=== PATIENT | female | born 1975 | race Caucasian/White ===

== ENCOUNTER 2018-03-16 12:42 | Emergency (ER) | payer OTHER ==
[~2018-03-16] VITALS: Ht 160 cm; Wt 74.1 kg
[2018-03-16 12:44] VITALS: TEMP 36.8; Ht 160 cm; Wt 74.1 kg
[2018-03-16] MEDS ORDERED: PRLSR20 PO (12:51)
--- NOTE | 2018-03-16 14:31 | DIAGNOSTIC IMAGING REPORT ---
SOFT TISSUE NECK TECHNIQUE: AP and lateral soft tissue neck FINDINGS: Normal prevertebral soft tissues. No distention of the hypopharynx. The epiglottis is normal. No evidence for radiopaque foreign body. Moderate degenerative disc change from C4 through C7 of the cervical spine. IMPRESSION: No evidence for radiopaque foreign body. Unremarkable airway appearance. Moderate degenerative disc change of the low cervical spine. The above report was generated using voice recognition software. It may contain grammatical, syntax or spelling errors. Electronically signed by: David Baum M.D. 03/16/2018 2:29 PM Dictated Date/Time: 03/16/2018 2:28 PM
[2018-03-16] MEDS ORDERED: HYDR-5688 PO (14:50)
[2018-03-16] MEDS ORDERED: LORA-741 PO (14:50)
--- NOTE | 2018-03-16 14:52 | EMERGENCY ROOM VISIT NOTE ---
History First contact with patient: 13:03 Chief Complaint: THROAT PAIN/INJURY Stated Complaint: PROBLEMS WITH THROAT History of Present Illness The patient is a 42 year old female who presents to the Emergency Room with complaints of right-sided throat pain for 2 months. The patient states that she had an endoscopy performed 2 months ago for reflux. She states they put her on Prilosec twice daily after the endoscopy. 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 The patient states the pain has been persistent since that time. She has a follow-up in 6 months for repeat endoscopy. The patient saw her family doctor which placed her on a swish and swallow which did not resolve her symptoms. She set up appointment with ENT which she has tomorrow. The patient states that it feels like "there is a fishhook in my throat." She states she cannot sleep at night due to the pain. She states the chronic pain and irritation is giving her anxiety. The patient denies any nausea or vomiting. The patient does admit to belching but that is not new to her. Review of Systems 10 system review was performed and was negative unless stated otherwise history of present illness. Past Medical/Surgical History GERD, Veloz's esophagitis Social History Smoking Status: Current Every Day Smoker Occupation Status: employed Current/Historical Medications Scheduled Omeprazole (Prilosec), 20 MG PO DAILY Physical Exam Vital Signs Date Time Temp Pulse Resp B/P (MAP) Pulse Ox O2 Delivery O2 Flow Rate FiO2 03/16/18 13:03 97 Room Air 03/16/18 13:01 108 18 145/91 98 Room Air 03/16/18 12:47 99 Room Air 03/16/18 12:44 36.8 141 20 157/81 99 Room Air Physical Exam GENERAL: 42-year-old white female appears in no acute distress. MENTAL Status: Alert and oriented 3. The patient does appear somewhat anxious. Her thought process is good. EYES: PERRLA. EOMs intact. Funduscopic exam unremarkable. EARS: Canals clear. TMs without fluid level noted. PHARYNX: No erythema or edema noted. Airway is adequate. NECK: Supple, no lymphadenopathy noted. No carotid bruits noted. The patient is tender to palpation over the right anterior aspect of the neck. No palpable masses. LUNGS: Clear auscultation without wheezes rales or rhonchi. CARDIAC: Regular rate and rhythm without murmur with occasional ectopy. Pulses is full and equal throughout. Medical Decision & Procedures ER Provider Diagnostic Interpretation: SOFT TISSUE NECK TECHNIQUE: AP and lateral soft tissue neck FINDINGS: Normal prevertebral soft tissues. No distention of the hypopharynx. The epiglottis is normal. No evidence for radiopaque foreign body. Moderate degenerative disc change from C4 through C7 of the cervical spine. IMPRESSION: No evidence for radiopaque foreign body. Unremarkable airway appearance. Moderate degenerative disc change of the low cervical spine. The above report was generated using voice recognition software. It may contain grammatical, syntax or spelling errors. Electronically signed by: David Baum M.D. 03/16/2018 2:29 PM ED Course The patient was evaluated. Patient's EMR medication list were reviewed. The patient had her endoscopy performed at [facility]. An x-ray of the neck was ordered interpreted by the radiologist and myself as above without any note of foreign body or abnormality within the airway. The patient was informed of the findings. The patient was discharged home in stable condition.. Medical Decision Differential diagnosis include foreign body, airway irritation, Veloz's esophagitis [place] Drug Monitoring Program Search Results: patient reviewed within database Medication Reconcilliation Current Medication List: was personally reviewed by fl Blood Pressure Screening Patient's blood pressure: Elevated blood pressure Blood pressure disposition: Elevated BP felt to be situational Impression Primary Impression: Throat pain in adult Additional Impression: Anxiety Departure Information Dispostion Home / Self-Care Condition GOOD Prescriptions Lorazepam (ATIVAN) 0.5 Mg Tab 1 TAB PO Q6H for Anxiety/Agitation, #14 TAB Prov: Mago Baum PA-C 03/16/18 Hydrocodone/Acetaminophen 5MG/325MG (Fred 5MG/325MG) Tab 1-2 TABLET PO Q6 Y for Pain, #20 TAB For Initial Treatment Prov: Mago Baum PA-C 03/16/18 Referrals David Dee M.D. (PCP) Forms HOME CARE DOCUMENTATION FORM, IMPORTANT VISIT INFORMATION, WORK / SCHOOL INSTRUCTIONS Patient Instructions [facility] [employer] Additional Instructions Tylenol as needed for pain. Take Fred as needed for more severe pain. Do not take any additional Tylenol when you are taking the Fred. Do not drive while taking the Fred. Take Ativan as needed for anxiety. Do not drive while taking the Ativan. Keep scheduled appointment with ENT tomorrow. If they do not find the etiology for your discomfort, follow-up with your copra processor. Problem Qualifiers
[2018-03-16 15:00] VITALS: BP 146/92; PULSE 96; O2SAT 97
== END 2018-03-16 15:01 | disposition home or self-care (01) ==
LOC: C.EDB 12:44 → C.EDD 15:01
DX: R07.0 Pain in throat (principal); F41.9 Anxiety disorder, unspecified; F17.210 Nicotine dependence, cigarettes, uncomplicated

== ENCOUNTER → 2018-04-08 | Outpatient (CLI) | payer OTHER ==
[~2018-04-08] MED LIST: HYDR-5688 PO; PRLSR20 PO
--- NOTE | 2018-04-08 12:10 | DIAGNOSTIC IMAGING REPORT ---
GASTRIC EMPTYING HISTORY: Apparent esophagus. Dysphagia. Upper abdominal pain. K22.70 Veloz's [id number] Laryngopharyngeal reflux (LPR)NU COMPARISON: None. TECHNIQUE: Following the oral administration of 1 mCi of technetium 99m sulfur colloid in egg sandwich and 8 ounces of water, static abdominal images are obtained anteriorly and posteriorly at 0 minutes, 1 hour, 2 hour, and 4 hour time intervals. Gastric emptying was calculated utilizing the geometric mean method. FINDINGS: There is approximately 75 % activity remaining at the 1 hour time interval (normal is less than 90%), 44 % remaining at the 2 hour time interval (normal is less than 60%), and 3 % activity remaining at the 4 hour time interval (normal is less than 10%). IMPRESSION: No evidence for delayed gastric emptying. The above report was generated using voice recognition software. It may contain grammatical, syntax or spelling errors. Electronically signed by: David Baum M.D. 04/08/2018 12:09 PM Dictated Date/Time: 04/08/2018 12:08 PM
== END | disposition home or self-care (01) ==
LOC: C.NUCL 07:30
PROVIDERS: ATTEND Registered Nurse
DX: K21.9 Gastro-esophageal reflux disease without esophagitis (principal); K22.70 Barrett's esophagus without dysplasia

== ENCOUNTER 2019-08-05 08:43 | Observation (INO) ==
--- NOTE | 2019-07-14 10:17 | Anesthesiology Consultation ---
Date of Service July 14, 2019 Assessment & Plan (1) Encounter for pre-operative examination: Chart Review Chart Review: Acceptable Risk for Surgery and Patient NOT seen in Pre Admission Testing History Surgery Operation Date: 08/05/19 08:15 Proposed Procedures p Diagnostic Laparoscopy, Possible Laparoscopic Cholecystectomy, - Rick Malloy DO s Open Incisional Hernia Repair Possible Mesh - Rick Malloy DO Height/Weight Height: 5 ft 3 in Weight: 63.503 kg Allergies Allergy/AdvReac Type Severity Reaction Status Date / Time No Known Allergies Allergy Verified 07/14/19 08:48 Medications Home Medications Medication Instructions Recorded Confirmed Last Taken calcium carbonate [Tums] 200 mg PO QID PRN 10/29/18 07/14/19 01/13/19 16:00 fluticasone propionate [Flonase 1 spray INTRANASAL DAILY PRN 10/29/18 07/14/19 01/13/19 18:00 Allergy Relief] gabapentin 300 mg PO BID 06/30/19 07/14/19 06/29/19 sumatriptan succinate [Imitrex] 100 mg PO UD PRN 07/14/19 07/14/19 Unknown Past Medical History Medical History Barretts esophagus (Chronic) GERD (gastroesophageal reflux disease) Incisional hernia Migraine Restless leg syndrome Past Family History Family History Grandmother (Paternal) Family history of diabetes mellitus Other No family history of adverse response to anesthesia Past Surgical History Surgical History History of laparoscopy HX OF OPEN DIAGNOSTIC LAP FOR ISSUE WITH OVARY History of esophagogastroduodenoscopy (EGD) History of Penny fundoplication History of bilateral tubal ligation History of hip surgery left History of repair of hiatal hernia History of wisdom tooth extraction Social History Smoking Status: Current every day smoker tobacco type: cigarettes Smoking cigarettes per day: 10-15 PER DAY Do You Dip or Chew Tobacco: No Hx Alcohol Use: Yes Alcohol type: beer alcohol intake frequency: holidays/special occasions only Hx Substance Use: No substance use type: does not use Testing Laboratory Results 06/30/19 WBC 8.64 H/H 14.0/40.7 PLATELETS 209 SODIUM 140 POTASSIUM 3.7 CHLORIDE 105 CO2 29 BUN 8 CREATININE 0.90 GLUCOSE 88 UA negative bacteria Electrocardiogram Date: 09/16/18 Findings: + NSR @ (88) Chest X-Ray Date: 09/16/18 Findings: + NAD
[~2019-08-05 08:43] MED LIST changes: +CEFAZOLIN 2000MG 2,000 MG/15 ML SYR IV SCH; -HYDR-5688 PO; +LR 15ML/HR IV SCH; -PRLSR20 PO
[2019-08-05] MEDS ORDERED: PHENYLEPHRINE HCL 10 MG/ML VIAL ONE (09:03)
[2019-08-05] MEDS ORDERED: LIDOCAINE HCL 2% 2 ML VIAL/AMP(20MG/ML) INFIL ONE (09:03)
[2019-08-05] MEDS ORDERED: PROPOFOL IV EMULSION 10 MG/ML 20 ML VIAL IV ONE ×2 (09:03→12:08)
[2019-08-05] MEDS ORDERED: SUCCINYLCHOLINE CHLORIDE 20 MG/ML 10 ML VIAL ONE (09:03)
[2019-08-05] MEDS ORDERED: NEOSTIGMINE METHYLSULFATE 5 MG/5 ML SYR ONE (09:03)
[2019-08-05] MEDS ORDERED: DEXAMETHASONE SOD INJ 4 MG/ML VIAL ONE (09:03)
[2019-08-05] MEDS ORDERED: ONDANSETRON INJ 2 MG/ML 2 ML VIAL ONE (09:03)
[2019-08-05] MEDS ORDERED: GLYCOPYRROLATE 0.2 MG/ML VIAL ONE (09:03)
[2019-08-05] MEDS ORDERED: ePHEDrine sulfate 50 MG/ML AMP ONE (09:03)
[2019-08-05] MEDS ORDERED: fentaNYL citrate 100 MCG/2 ML VIAL ONE (09:04)
[2019-08-05] MEDS ORDERED: MIDAZOLAM HCL 1 MG/ML 2ML VIAL ONE (09:04)
[2019-08-05] MEDS ORDERED: ATROPINE SULFATE 0.1 MG/ML 10ML SYR IV PRN (09:23)
[2019-08-05] MEDS ORDERED: ePHEDrine sulfate 50 MG/ML AMP IV PRN (09:23)
[2019-08-05] MEDS ORDERED: ONDANSETRON INJ 2 MG/ML 2 ML VIAL IV PRN (09:23)
[2019-08-05] MEDS ORDERED: BUPIVACAINE/EPINEPHRINE 0.5% MPF 1:200,000 30 ML VIAL ONE (09:35)
--- NOTE | 2019-08-05 09:39 | History & Physical Report ---
Date of Service August 05, 2019 Assessment & Plan (1) Incisional hernia: With a long discussion. Certainly the hernia needs to be repaired and this would give me a prime opportunity to evaluate her prior Penny complication as well as to look for adhesions etc. Certainly clinically many of her symptoms sound gallbladder nature. We will evaluate this as well intraoperatively and have a low threshold for. We discussed her options and risks. We discussed bleeding, infection, injury to another organ, bile leaks or injury to the biliary tree, DVT, PE, CO, CVA etc. Following all this I answered her questions. We will proceed with a diagnostic laparoscopy, possible cholecystectomy, surgery as needed, and repair of her supraumbilical incisional hernia possibly with mesh. Patient is agreeable with our plan. (2) GERD (gastroesophageal reflux disease): (3) Right upper quadrant abdominal pain: History of Present Illness Primary Care Provider: David Dee MD Patient with a history of prior laparoscopic Penny fundoplication. She noticed a bulge at her supraumbilical incision. She is also been having postprandial right upper quadrant pain with radiation into her back. She recently had a HIDA scan which caused her the exact same symptoms that she is been getting at home. She had severe pain with radiation in her back and nausea. Unfortunately this test cause her to vomit multiple times. Since then she has been noticing a sensation of acid reflux with a sore throat again. Allergies Allergy/AdvReac Type Severity Reaction Status Date / Time No Known Allergies Allergy Verified 08/05/19 09:14 Home Medications Home Medications Medication Instructions Recorded Confirmed Type calcium carbonate [Tums] 200 mg PO QID PRN 10/29/18 08/05/19 History fluticasone propionate [Flonase 1 spray INTRANASAL DAILY PRN 10/29/18 07/14/19 History Allergy Relief] gabapentin 300 mg PO BID 06/30/19 08/05/19 History lubiprostone 8 mcg capsule 8 mcg PO BID #60 cap 07/14/19 08/05/19 Rx sumatriptan succinate [Imitrex] 100 mg PO UD PRN 07/14/19 08/05/19 History Past Med/Surg History Medical History Barretts esophagus (Chronic) GERD (gastroesophageal reflux disease) Incisional hernia Migraine Restless leg syndrome Surgical History History of laparoscopy HX OF OPEN DIAGNOSTIC LAP FOR ISSUE WITH OVARY History of esophagogastroduodenoscopy (EGD) History of Penny fundoplication History of bilateral tubal ligation History of hip surgery left History of repair of hiatal hernia History of wisdom tooth extraction Family History Grandmother (Paternal) Family history of diabetes mellitus Other No family history of adverse response to anesthesia Social History Preferred Language: Welsh Communication Ability: Effective Visual Impairment: No Limitations Carrier Operator Required: No Beliefs That Will Affect Care: None Current Living Situation: Spouse and Family Current Living Situation Comment: Lives with and 2 kids Other Information That Helps Us Care for You: No Feels Safe at Home: Yes Safety Concerns: Feels Safe At This Time Smoking Status: Current every day smoker Tobacco Type: cigarettes ; Cigarettes Per Day: 10 a day ; Do You Dip or Chew Tobacco: No ; Second Hand Exposure: Yes (parents smoked) ; Tobacco Cessation Education Requested by Patient: No Hx Alcohol Use: No Hx Substance Use: No Review of Systems All systems reviewed & are unremarkable except as noted in HPI & below Physical Exam Constitutional: WD/WN, vitals as above no acute distress and not ill appearing Eyes: PERRL, conjunctivae normal, anicteric sclerae EOM intact bilaterally ENMT: external ear and nose normal, oropharynx normal Ears: no hearing impairment Neck: trachea midline, no thyromegaly Respiratory: normal respiratory effort; no respiratory distress and does not use accessory muscles Cardiovascular: Rate/Rhythm: regular rate and regular rhythm Gastrointestinal (Abdomen): normal bowel sounds, soft, nontender, no hepatosplenomegaly Positive hernia at her supraumbilical laparoscopic incision. Nonreducible. Minimal tenderness. Skin: no rashes, warm and dry Psychiatric: Orientation: alert, oriented x 3 and cooperative
[2019-08-05] MEDS ORDERED: MINERAL OIL LIGHT 10 ML BTL ONE (11:15)
[2019-08-05] MEDS ORDERED: CEFAZOLIN 250 MG/ML 1 GM VIAL ONE (12:08)
--- NOTE | 2019-08-05 12:36 | Operative Report ---
Post Operative Report Pre & Post Diagnosis Operation Date: 08/05/19 09:45 Pre-Op Diagnosis: Abdominal Pain, Incisional Hernia Post-Op Diagnosis: Abdominal Pain, Incisional Hernia, cholecystitis, undone prior fundoplication, adhesions Procedure Operation Date: 08/05/19 09:45 Actual Procedures p Diagnostic Laparoscopy, Laparoscopic Cholecystectomy;(Not Applicable) - Rick Malloy DO s Revision of Penny Fundoplication, Posterior Gastropexy, Enterolysis, Open Repair of Incisional Hernia(Not Applicable) - Rick Malloy DO Surgeon Rick Malloy DO Director Medical Safety annette Yousif Estimated Blood Loss 15 Findings Consistent with Post-Op Diagnosis Specimens gallbladder Description of Procedure After informed consent was obtained the patient was taken to the operating room and placed in supine position. After successful intubation the abdomen was sterilely prepped and draped in usual fashion. I began by making an incision through her old scar above her umbilicus where the visible hernia was. This was carried down through soft tissue using cautery. We encountered a hernia sac which we excised with cautery. A finger sweep was then performed. Two #0 Vicryl stay sutures were placed into the edges of the hernia defect. We then placed a 12 mm Fregoso trocar directly through the incisional hernia. Next we reinsufflated the abdomen to 18 mmHg. Laparoscope was inserted and the abdomen was examined in 360 degrees. There were a few minimal adhesions in the upper midline. I was able to place a left upper quadrant 5 mm trocar that would later be converted to a 12 mm trocar through an old scar line. In the right upper abdomen I was able to place two 5 mm trochars through old incisions. Eventually later in the case we would also place a left upper quadrant 5 mm trocar again through an old incision site. I began by using cautery scissors to take down the adhesions. We placed her in reverse Trendelenburg position and slightly air planed to the left. I examined her right upper quadrant and her gallbladder in fact did have some adhesions to it as well as appeared to be slightly thickened. I took down these adhesions using blunt dissection. We elevated the gallbladder superiorly and laterally. I decided to go ahead and remove it considering her symptom complex. After taking down the adhesions I skeletonized the cystic duct clipped it twice proximally once distally and transected it. In similar fashion the cystic artery was identified skeletonized clipped and divided. The gallbladder was removed from the gallbladder fossa. A small amount of bile was released during this process which we immediately suctioned and irrigated. This was placed into an Endo Catch bag and removed from the supraumbilical port site. We thoroughly irrigated the right upper quadrant until all the irrigant was clear. At the end of this there was no evidence of bile leaks and there was adequate hemostasis. She had stated to me prior to the surgery that after vomiting about a week and a half ago following her HIDA scan she began having burning and acid reflux symptoms again. This led me to explore her previous Penny fundoplication which I discussed with her preoperatively. After removing some adhesions to the undersurface of the left lobe of the liver I was able to delineate the anatomy. In fact her prior Penny fundoplication had become undone. At this point we used a liver retractor to elevate the left lobe of the liver for our exposure. We took down some adhesions from the lateral side of the stomach to the spleen. After we had everything back to normal anatomic position I was able to identify her previous retrogastric window. I placed a grasper through this and grasped the fundus. This easily came underneath the stomach. We were able to easily perform a shoeshine test. We had anesthesia place a 50 Grenadian bougie to perform the wrap over. I performed a posterior gastropexy with the Endo Stitch device with 0 Surgidac. I secured the posterior portion of the fundus to the right crew the diaphragm with 2 simple interrupted sutures. Next we completed the 360 degree wrap by grasping body of the stomach lateral to the bougie grabbing a portion of the pre- esophageal fat pad and then grabbing the fundus on the medial side and tied this down creating the 360 degree wrap. We used several interrupted sutures to do this as well. The wrap was not twisted and did not appear to be too tight. We then easily removed the bougie. I looked around the abdomen and saw no other abnormalities. There was adequate hemostasis. We removed all the trochars and desufflated the abdomen. The hernia at this port site incision was closed using 0 Ethibond in interrupted [id number] fashion. The wounds were all irrigated thoroughly. 4-0 Monocryl was used to close the incisions. Marcaine was injected around them for postoperative analgesia and skin glue used as a dressing. My physician collections assistant was present to the entire case. He helped prep the patient. He helped run the camera and with exposure and retraction for all of my dissection. He also helped with wound closure and dressing placement at the end of the case. I attest to the content of the Intraoperative Record and any orders documented therein. Any exceptions are noted below.
[2019-08-05] MEDS: fentaNYL citrate 100 MCG/2 ML VIAL IV PRN ×3 (12:37→12:47)
--- NOTE | 2019-08-05 12:38 | Post Operative Brief Note ---
PG Immediate Post Op with CF Date of Surgery August 05, 2019 Pre & Post Diagnosis Operation Date: 08/05/19 09:45 Pre-Op Diagnosis: Abdominal Pain, Incisional Hernia,gerd Post-Op Diagnosis: Abdominal Pain, Incisional Hernia, undone prior fundoplication, adhesions, cholecystits Procedure Operation Date: 08/05/19 09:45 Actual Procedures p Diagnostic Laparoscopy, Laparoscopic Cholecystectomy;(Not Applicable) - Rick Malloy DO s Revision of Penny Fundiplication, Posterior Gastropexy, Enterolysis, Open Repair of Incisional Hernia(Not Applicable) - Rick Malloy DO Surgeon Rick Malloy DO Clinic Licensed Practical Nurse annette Yousif Estimated Blood Loss 15 Findings Consistent with Post-Op Diagnosis Specimens Specimen Description: A. Gallbladder
--- NOTE | 2019-08-05 13:03 | Anesthesiology Progress Note ---
Date of Service August 05, 2019 Anesthesia Post Procedure Vital Signs Vital Signs: Temp Pulse Pulse Resp BP Pulse Ox 08/05/19 12:50 92 H 20 124/68 99 08/05/19 12:40 96 H 20 120/74 100 08/05/19 12:30 102 H 20 134/79 98 08/05/19 12:22 97.5 F L 85 18 129/78 95 08/05/19 09:24 98.1 F 83 16 115/69 97 Pain Intensity Abdomen: Pain Intensity: 6 Transfer of Care Handoff Completed per policy Notes Mental Status: alert / awake / arousable and participated in evaluation Patient Amnestic to Procedure: Yes Nausea / Vomiting: adequately controlled Pain: adequately controlled Airway Patency, RR, SpO2: stable & adequate BP & HR: stable & adequate Hydration State: stable & adequate Anesthetic Complications: no major complications apparent and Pt Satisfied with anesthetic care
[2019-08-05] MEDS ORDERED: OXYCODONE/ACETAMINOPHEN 5mg/325mg TAB PO PRN ×2 (13:42)
[2019-08-05] MEDS ORDERED: SUMAtriptan succinate 100 MG TAB PO PRN (13:42)
[2019-08-05] MEDS ORDERED: FLUTICASONE PROPIONATE NA SPR 16 GM BTL NAE PRN (13:42)
[2019-08-05] MEDS ORDERED: ACETAMINOPHEN 325 MG TAB PO PRN (13:42)
[2019-08-05] MEDS: LACTATED RINGER'S 1,000 ML IV SCH (15:41)
[2019-08-05] MEDS: MoRPHine SULFATE 4 MG/ML 1 ML CARP\\VIAL IV PRN ×2 (15:41→23:52)
[2019-08-05] MEDS: ONDANSETRON INJ 2 MG/ML 2 ML VIAL IV PRN ×2 (15:42→23:47)
[2019-08-05] MEDS: LUBIPROSTONE 8 MCG CAP PO SCH (17:56)
[2019-08-05] MEDS: PROMETHAZINE HCL 12.5 MG in SODIUM CHLORIDE 0.9% 50 ML IV PRN (19:21)
[2019-08-05] MEDS ORDERED: GABAPENTIN 300 MG CAP PO SCH (21:00)
[2019-08-06] MEDS: LACTATED RINGER'S 1,000 ML IV SCH (02:39)
[2019-08-06] MEDS: PROMETHAZINE HCL 12.5 MG in SODIUM CHLORIDE 0.9% 50 ML IV PRN (02:39)
[2019-08-06] MEDS: ONDANSETRON INJ 2 MG/ML 2 ML VIAL IV PRN (05:46)
[2019-08-06] MEDS: MoRPHine SULFATE 4 MG/ML 1 ML CARP\\VIAL IV PRN (05:48)
[2019-08-06] MEDS: LUBIPROSTONE 8 MCG CAP PO SCH (07:17)
[2019-08-06] MEDS ORDERED: HYDROCODONE/ACETAMOPHEN 5/325MG TAB PO PRN ×2 (07:38)
--- NOTE | 2019-08-06 07:41 | Surgery Progress Note ---
Date of Service August 06, 2019 Assessment & Plan (1) Incisional hernia: POD#1 diagnostic laparoscopy, laparoscopic cholecystectomy, revision john fundoplication, and open umbilical hernia repair. Progressing as expected Advance diet to full liquids today as tolerated Transition to po pain Nausea management, prn zofran ordered Potential discharge to home today pending pain control and toleration of diet as above. vera liquids. wants to go home will d/c with zofran and a scopolamine patch. liquid/soft diet discussed f/u in 1-2 weeks. Subjective Patient awake/alert this AM. Tolerated some clear liquids for dinner last night. Endorses some nausea, but no bouts of emesis. Has some post surgical soreness that has been managed with po Tylenol and IV morphine. Has been out of bed ambulating. Physical Exam Physical Exam: awake and alert Constitutional: well developed and well nourished; no acute distress and not ill appearing Respiratory: normal respiratory effort; no respiratory distress and no labored breathing Gastrointestinal (Abdomen): Inspection/Auscultation: + abdominal surgical incision (with dermabond overtop) Results & Data Vital Signs (Past 12 Hours) Vital Signs Temp Pulse Resp BP Pulse Ox 08/06/19 03:22 37.0 C 81 14 115/74 96 08/05/19 23:38 37.0 C 81 14 115/72 96 PG Care Time/CCT Total # of Minutes Spent Total Time Spent with Patient: Total time spent is greater than 50% in coordination of care (as documented) at patient's floor/unit and/or counseling patient:
--- NOTE | 2019-08-06 08:31 | Anesthesiology Progress Note ---
Date of Service August 06, 2019 Anesthesia Post Procedure Vital Signs Vital Signs: Temp Pulse Pulse Pulse Resp BP BP 08/06/19 07:48 36.5 C 81 17 125/75 08/06/19 03:22 37.0 C 81 14 115/74 08/05/19 23:38 37.0 C 81 14 115/72 08/05/19 19:27 36.8 C 81 20 106/68 08/05/19 16:51 36.5 C 81 17 102/63 08/05/19 15:54 36.4 C L 84 17 104/66 08/05/19 14:50 84 15 105/66 08/05/19 14:34 85 18 106/65 08/05/19 13:55 84 18 109/63 08/05/19 13:30 36.5 C 80 16 109/67 08/05/19 13:10 90 16 114/65 08/05/19 13:00 36.8 C 85 16 113/68 08/05/19 12:50 92 H 20 124/68 08/05/19 12:40 96 H 20 120/74 08/05/19 12:30 102 H 20 134/79 08/05/19 12:22 36.4 C L 85 18 129/78 08/05/19 09:24 36.7 C 83 16 115/69 Pulse Ox 08/06/19 07:48 96 08/06/19 03:22 96 08/05/19 23:38 96 08/05/19 19:27 96 08/05/19 16:51 96 08/05/19 15:54 96 08/05/19 14:50 96 08/05/19 14:34 98 08/05/19 13:55 99 08/05/19 13:30 98 08/05/19 13:10 99 08/05/19 13:00 99 08/05/19 12:50 99 08/05/19 12:40 100 08/05/19 12:30 98 08/05/19 12:22 95 08/05/19 09:24 97 Pain Intensity Abdomen: Pain Intensity: 7 Notes Mental Status: alert / awake / arousable Patient Amnestic to Procedure: Yes Nausea / Vomiting: adequately controlled Pain: adequately controlled Airway Patency, RR, SpO2: stable & adequate BP & HR: stable & adequate Hydration State: stable & adequate Anesthetic Complications: no major complications apparent and Pt Satisfied with anesthetic care Notes: Pt complaining of nausea, reviewed patients current scheduled medication, discussed with Dr. Traylor considered adding a scopolamine patch to help with patients symptoms. Dr. Traylor did want Dr. Malloy's input prior to adding this. Discussed with patient and she was happy with her anesthesia care and the current regimine.
[2019-08-06] MEDS ORDERED: SCOPOLAMINE 1.5 MG TDSY TD SCH (08:45)
--- NOTE | 2019-08-06 09:27 | Discharge Summary ---
Date of Service August 06, 2019 Admission HPI Per Admitting Provider Patient with a history of prior laparoscopic Penny fundoplication. She noticed a bulge at her supraumbilical incision. She is also been having postprandial right upper quadrant pain with radiation into her back. She recently had a HIDA scan which caused her the exact same symptoms that she is been getting at home. She had severe pain with radiation in her back and nausea. Unfortunately this test cause her to vomit multiple times. Since then she has been noticing a sensation of acid reflux with a sore throat again. Principal Diagnosis Incisional Hernia GERD Right upper quadrant abdominal pain Discharge Exam awake, alert Constitutional well developed and well nourished; no acute distress Respiratory normal respiratory effort; no respiratory distress and no labored breathing Cardiovascular Rate/Rhythm: regular rate Gastrointestinal (Abdomen) Inspection/Auscultation: + abdominal surgical incision (with dermabond overtop) Discharge Data Allergies Allergy/AdvReac Type Severity Reaction Status Date / Time No Known Allergies Allergy Verified 08/05/19 09:14 Procedures Performed Operation Date: 08/05/19 09:45 Actual Procedures p Diagnostic Laparoscopy, Laparoscopic Cholecystectomy;(Not Applicable) - Rick Malloy DO s Open Repair of Incisional Hernia(Not Applicable) - DO beatriz Gaxiola Revision of [place] Fundiplication, Posterior Gastropexy, Enterolysis, (Not Applicable) - Rick Malloy DO Hospital Course (1) Incisional hernia: This is a 43y F with a history of a prior laparoscopic penny fundoplication over 1 year ago who has been evaluated as an outpatient for an incisional hernia as well as RUQ pain. Of note she also recently has been experiencing GERD type symptoms. After ongoing workup and evaluation the decision was made to take her to the OR for surgical management of her hernia as well as investigate her prior lap penny and gallbladder. On 08/05 the patient went to the OR with Dr. Malloy and underwent a diagnostic laparoscopy, laparoscopic cholecystectomy, revision penny fundoplication, as well as incisional hernia repair. The patient tolerated the procedure well, please see operative note for full details. Post operatively the patient was started on a clear liquid diet and pain was well controlled with oral and prn IV pain me dication. She was out of bed ambulating without issues. Patient endorsed some mild nausea that was managed with prn zofran. POD#1 the patient's diet was advanced to full liquids, pain medication transitioned to an oral regimen, and surgical incisions clean/dry/intact. The patient was instructed to follow a soft/liquid diet until she is seen for follow up in clinic. The patient was deemed stable for discharge on 08/06/19. Total Time Total Time Spent Total Time Spent (In Minutes): 15 Discharge Plan Discharge Items Patient Disposition: Home - Self-Care Reason For Visit: Abdominal Pain, Incisional Hernia Discharge Diagnosis: incisional hernia repair, laparoscopic cholecystectomy, revision penny repair Discharge Goals: Decrease discomfort, Improve disease control and Improve func tion Activity: Per 'Additional Instructions' section Lifting: No more than 10 pounds Bathing Comment: you may shower starting today Exercise/Sports: Wait until after follow-up appointment Driving/Machine Use Comment: Do not resume driving if you are taking narcotics for pain Non-emergency contact: Surgeon Call non-emergency contact if: you have any medication questions, your symptoms worsen, your pain is not controlled, you have a fever, your temperature is above 101.5, your wound has increased redness, your wound has increased drainage and your wound pain has increased Follow-up/Referrals: Rick Malloy, [Surgeon] - (Please schedule follow up within 2 weeks. You may call the office sooner if you have any questions/concerns.) David Dee MD [Primary Care Provider] - Diet: Full liquid Diet Comment: Please follow a soft/liquidy diet as previously discussed Addtl Provider Instructions: Prescriptions: New hydrocodone-acetaminophen [[place]] 5-325 mg tablet 1 - 2 tab PO Q4H PRN (Reason: pain, initial therapy) Qty: 15 RF: 0 ondansetron 4 mg tablet,disintegrating 4 mg PO Q8H PRN (Reason: nausea and vomiting) 4 Days Qty: 30 RF: 1 Continued Amitiza 8 mcg capsule 8 mcg PO BID Qty: 60 RF: 2 calcium carbonate [Tums] 200 mg calcium (500 mg) Tablet,Chewable 200 mg PO QID PRN (Reason: Indigestion) RF: 0 fluticasone propionate [Flonase Allergy Relief] 50 mcg/actuation [place],Suspension 1 spray INTRANASAL DAILY PRN (Reason: Allergy Symptoms) RF: 0 gabapentin 300 mg Capsule 300 mg PO BID RF: 0 sumatriptan succinate [Imitrex] 100 mg Tablet 100 mg PO UD PRN (Reason: Migraine Headache) RF: 0 Stand-Alone Forms: [employer] Josh/Other Patient Handouts: Hydrocodone Bitartrate Acetaminophen Oral tablet, Cholecystectomy Laparoscopic Discharge Orders: Discharge Order (Routine); Ordered 08/06/19 Ordered By: Unique Sood Admission Data Admit Date/Time: 08/05/19 12:26 Attending Provider: Rick Malloy Admit Provider: Rick Malloy Primary Care Provider: David Dee Service: Surgical Services Other Interventions: Discharge Summary Assessment (RN) Last Done: 08/06/19 08:52 DC Date/Time DO NOT enter until pt leaves facility: 08/06/19 09:28
[2019-08-06] MEDS ORDERED: CHECK SCOPOLAMINE PATCH PLACEMENT SCH (16:00)
== END 2019-08-06 09:28 | disposition home or self-care (01) ==
LOC: 3N 08:43 → ASU 08:43